=== PATIENT | female | born 1985 | race Caucasian/White ===

== ENCOUNTER 2016-07-19 13:41 | Emergency (ER) | payer BC, OTHER ==
[~2016-07-19] VITALS: Ht 162.6 cm; Wt 81.6 kg
[2016-07-19 13:45] VITALS: BP 115/73
[2016-07-19] MEDS ORDERED: DEXAMETHASONE SOD PHOSPHATE 10 MG/ML VIAL ONE (13:58)
[2016-07-19] MEDS ORDERED: KETOROLAC TROMETHAMINE INJ 30 MG/ML VIAL ONE (13:58)
[2016-07-19] MEDS ORDERED: PENICILLIN G BENZATHINE 2.4 MMU/4 ML ML IM ONE ×2 (13:59→14:00)
[2016-07-19] MEDS ORDERED: DEXAMETHASONE SOD PHOSPHATE 10 MG/ML VIAL IM ONE (14:00)
[2016-07-19] MEDS ORDERED: KETOROLAC TROMETHAMINE INJ 60 MG/2 ML VIAL IM ONE (14:00)
== END 2016-07-19 14:11 | disposition home or self-care (01) ==
LOC: ER 13:44
DX: J02.9 Acute pharyngitis, unspecified (principal); Z90.49 Acquired absence of other specified parts of digestive tract
CPT/HCPCS: 96372 ×3; 99284; A4606; J0558; J1100; J1885; Z7610

== ENCOUNTER 2018-05-17 14:45 | Emergency (ER) | payer BC, OTHER ==
[~2018-05-17] VITALS: Ht 167.6 cm; Wt 94.8 kg
--- NOTE | 2018-05-17 15:20 | NUR ---
PT PRESENTED TO THE ER WITH A C/O RT BREAST PAIN. PT WAS TRIAGED AND TAKEN TO ROOM #16. JULIENNE LEE IS AT THE BEDSIDE.
[2018-05-17] MEDS ORDERED: NAPROXEN 500 MG TABLET PO STA (15:39)
[2018-05-17] MEDS ORDERED: NAPROXEN 250 MG TABLET ONE (15:46)
--- NOTE | 2018-05-17 15:49 | NUR ---
KIERAN US TECH, ARRIVED AND IS AT THE BEDSIDE.
--- NOTE | 2018-05-17 16:35 | NUR ---
Patient discharged to home in stable condition. Written and verbal after care instructions given. Patient verbalizes understanding of instruction AND RX. PT AMBULATED OUT WITH A STEADY GAIT. VSS.
[2018-05-17 16:37] VITALS: BP 139/83
== END 2018-05-17 16:29 | disposition home or self-care (01) ==
LOC: ER 14:47
DX: N64.4 Mastodynia (principal); Z90.49 Acquired absence of other specified parts of digestive tract
CPT/HCPCS: 76642-TC

== ENCOUNTER 2018-06-09 08:33 | Outpatient (CLI) | payer BC, OTHER ==
[2018-06-09 09:32] LABS: BILIRUBIN,TOTAL 1.5 mg/dL (0.2-1.0); CALCIUM, SERUM 9.3 mg/dL (8.5-10.1); CREATININE 0.7 mg/dL (0.6-1.3)
[2018-06-09 09:42] LABS: THYROID STIMULATING HORMONE 1.404 uIU/mL (0.358-3.74)
[2018-06-09 09:46] LABS: BASOPHILS # (AUTO) 0.1 /CMM (0.0-0.2); BASOPHILS % (AUTO) 0.6 % (0.0-2.0); EOSINOPHILS % (AUTO) 0.3 % (0.0-6.0); HEMATOCRIT 41 % (33-45); HEMOGLOBIN 13.6 g/dL (11.5-14.8); LYMPHOCYTES # (AUTO) 3.2 /CMM (0.8-4.8); LYMPHOCYTES % (AUTO) 35.1 % (20.0-44.0); MEAN CORPUSCULAR HGB CONC 34 g/dl (31.0-36.0); MEAN CORPUSCULAR VOLUME 90 fL (82-100); MONOCYTES # (AUTO) 0.5 /CMM (0.1-1.30); MONOCYTES % (AUTO) 5.5 % (2.0-12.0); NEUTROPHILS # (AUTO) 5.4 /CMM (1.8-8.9); NEUTROPHILS % (AUTO) 58.5 % (43.0-81.0); PLATELET COUNT (AUTO) 368 /CMM (150-450); RED BLOOD CELL COUNT(AUTO) 4.53 MIL/uL (4.0-5.2); WHITE BLOOD COUNT (AUTO) 9.2 K/uL (4.3-11.0)
[2018-06-09 09:59] LABS: APPEARANCE,URINE CLEAR (CLEAR); BILIRUBIN,URINE NEGATIVE (NEGATIVE); BLOOD, URINE TRACE-INTA Ery/uL (NEGATIVE); COLOR,URINE YELLOW (YELLOW); KETONES,URINE NEGATIVE (NEGATIVE); LEUKOCYTE ESTERASE ,URINE NEGATIVE (NEGATIVE); NITRITE, URINE NEGATIVE (NEGATIVE); PH,URINE 5.5 (5.0-8.0); PROTEIN,URINE NEGATIVE (NEGATIVE); UGLUCOSE NEGATIVE (NEGATIVE); UROBILINOGEN,URINE 0.2 EU/dL (0.2)
[2018-06-09 15:28] LABS: BACTERIA,URINE None seen /HPF (None Seen); SQUAMOUS EPITHELIAL CELL,UR Few /HPF (None Seen); WBC,URINE 0-2 /HPF (0-3)
[2018-06-10 08:07] LABS: FOLIC ACID 8.8 ng/mL (>3.0); FOLLICLE STIMULATION HORMONE 5.4 mIU/mL (.); PROLACTIN 11.9 ng/mL (4.8-23.3)
== END 2018-06-09 23:59 | disposition home or self-care (01) ==
LOC: LAB 08:33
PROVIDERS: ATTEND Legal Medicine
DX: Z00.00 Encounter for general adult medical examination without abnormal findings (principal); E11.9 Type 2 diabetes mellitus without complications; I10 Essential (primary) hypertension; E03.9 Hypothyroidism, unspecified; D64.9 Anemia, unspecified
CPT/HCPCS: 36415; 80053-TC; 80061-TC; 81000-TC; 82306; 82670; 83001; 83002; 83540-TC; 84146; 84403; 84443-TC; 85025-TC; 86337